=== PATIENT | female | born 1995 | race Caucasian/White ===

== ENCOUNTER 2022-03-24 14:01 | Outpatient (CLI) | payer MEDICAID, SELFPAY ==
[2022-03-24 21:58] LABS: Albumin* 4.3 g/dL (3.3-5.0); Chloride* 107 mmol/L (96-114)
[2022-03-24 21:59] LABS: Potassium* 4.5 mmol/L (3.6-5.1); Sodium* 142 mmol/L (135-149)
[2022-03-24 22:01] LABS: Aspartate Amino Transferase* 33 U/L (12-35); Bilirubin Total* 0.5 mg/dL (0.1-1.5); Carbon Dioxide* 28 mmol/L (20-32); Creatinine* 0.6 mg/dL (0.5-1.5); Estimated Glomerular Filt Rate 125 ml/min; Total Protein* 7.2 g/dL (6.0-8.3)
[2022-03-24 22:02] LABS: Alanine Aminotransferase* 36 U/L (4-35); Alkaline Phosphatase* 92 U/L (40-150); Blood Urea Nitrogen* 7 mg/dL (5-24); Calcium* 9.3 mg/dL (8.4-10.6); Glucose* 96 mg/dL (60-115)
== END 2022-03-24 14:02 | disposition home or self-care (01) ==
LOC: LKVREF 14:03
PROVIDERS: PCP Family Medicine; Visit Provider Family Medicine
DX: R10.11 Right upper quadrant pain (principal)
CPT/HCPCS: 80053

== ENCOUNTER 2024-02-15 18:14 | Emergency (ER) | payer OTHER, SELFPAY ==
[2024-02-15 18:17] VITALS: BP 130/84; PULSE 116; RESP 18; TEMP 36.9; O2SAT 95; BMI 42.1
--- NOTE | 2024-02-15 18:19 | ED.GENADULT ---
HPI - General Adult General Date Seen: 02/15/24 Chief complaint: Back Injury/Pain Stated complaint: back pain shhoting down rt leg Time Seen by Provider: 02/15/24 18:18 History of Present Illness HPI narrative: 28-year-old female with a past medical history of bipolar disorder, GERD, anxiety/depression, history of otitis media and eustachian tube dysfunction, (but no history of diabetes, cancer, immunosuppression) presenting to the ER today for right-sided low back pain radiating to her right hip and right proximal/lateral thigh. She has a history of low back problems and had a previous L5-S1 disc herniation affecting the nerve roots to going down her left leg. She actually had a diskectomy and lumbar interbody fusion of L5-S1 done about [address] Estrella, through the spine clinic from [place], and the surgery was done at [facility]. Since then she has been doing very well for the past 3 years. She has not had any recent back injury. No fall. No trauma. She has been feeling normally lately. She does not normally take any pain killers or muscle relaxers. She was sitting on her couch a couple of hours prior to arrival when she had onset of pain in her low back. She is not sure if she started well she was on the couch when she got up to go to the bathroom. The pain is located in her low back predominantly in the right lumbar paraspinous muscles and right pelvis and radiates to her right hip and a little bit to the right lateral but proximal thigh is not radiating further down that. No other numbness or weakness in her right leg. Bowel function has been normal. Bladder function normal. No fever chills. No dysuria, urgency, frequency. She is not having any flank pain. No anterior abdominal pain. She took ibuprofen 6 0 mg p.o. but did not get any relief from that. She is having so much spasming that she has trouble getting up and walking. She says she remembers the muscle spasms from years ago she had her previous back problems. She cannot remember 1 muscle relaxers were effective for her previously Related Data Home Medications ?Medication ?Instructions ?Recorded ?Confirmed aripiprazole 5 mg tablet 5 mg PO QDAY 11/26/21 02/15/24 omeprazole 20 mg capsule,delayed 20 mg PO QDAY 11/26/21 02/15/24 release etonogestrel 0.12 mg-ethinyl vag ring vaginal 02/15/24 estradiol 0.015 mg/24 hr vaginal ring (EnilloRing) phentermine 37.5 mg tablet 37.5 mg PO DAILY 02/15/24 02/15/24 propranolol 60 mg capsule,24 60 mg PO DAILY 02/15/24 02/15/24 hr,extended release Previous Rx's ?Medication ?Instructions ?Recorded albuterol sulfate 90 mcg/actuation 2 puff inhalation Q4-6H PRN 11/14/23 aerosol inhaler shortness of breath or wheezing #8.5 grams Allergies Allergy/AdvReac Type Severity Reaction Status Date / Time fluoxetine Allergy Intermediate Verified 03/24/22 13:28 [facility] Medical History Citizen Of [place] ethnicity Encounter for pre-operative examination ?Z01.818 - Encounter for other preprocedural examination (ICD-10) Surgical History History of third molar tooth extraction ?K08.409 - Partial loss of teeth, unspecified cause, unspecified class (ICD-10) Family History Other Breast cancer Heart disease Kidney stones Lung cancer Thyroid disease Social History Narrative: Electronic cigarette use Former smoker Smoking Status: Never smoker Second hand tobacco smoke exposure: No How often do you have a drink containing alcohol: never AUDIT-C Alcohol total score: 0 Non-prescribed substance use: denies use service: No Exam Narrative: Exam Narrative: Constitutional: Appears well-developed and well-nourished. Alert. Conversant. Uncomfortable and is laying supine on her bed. She is not able to sit up for exam because it causes too much pain in her low back.. HENT: Head: Atraumatic. Nose: Nose normal. Mouth/Throat: Oral mucosa is clear and moist. no trismus. Eyes: Conjunctivae normal. EOM normal. Pupils equal, round, and reactive to light. No scleral icterus. Neck: Normal range of motion. Neck supple. No tracheal deviation present. Cardiovascular: Normal rate, regular rhythm. No gallop. No friction rub. No murmur heard. Symmetric radial artery pulses Pulmonary/Chest: Effort normal. No stridor. No respiratory distress. No wheezes. No rales. No rhonchi . No CVA or rib tenderness. Abdominal: Soft. No distension. No mass. No tenderness. No rebound. No guarding. Musculoskeletal: RUE: Normal range of motion. No tenderness. No deformity LUE: Normal range of motion. No tenderness. No deformity RLE: Range of motion in her hip and knee are limited by her back pain. No edema. No tenderness. No deformity LLE: Range of motion in her hip and knee are limited by her back pain. No edema. No tenderness. No deformity She is able to roll partly onto her side for back exam. She has healed incision. There is no redness. No warmth. No bruising. No ecchymosis. No midline point tenderness or step-off. Pelvis is stable. Neurological: Alert and oriented to person, place, and time. Normal strength. CN II-VII intact. No sensory deficit. GCS eye subscore is 4. GCS verbal subscore is 5. GCS motor subscore is 6. Normal coordination Sensory: Normal light touch sensation bilaterally on the anteromedial thigh (L3), medial malleolus (L4), dorsal first web space (L5), lateral malleolus (S1). Strength: 5/5 strength hip flexors (L3) on the right and left 5/5 strength in the quadriceps (L4) on the right and left 5/5 strength in the tibialis anterior 5/5 strength in the EHL (L5) on the right and left 5/5 strength in the gastrocnemius (S1) on the right and left 5/5 strength in the hamstring on the right and left DTRs: symmetric in the patella (1+/4) and in the achilles (2/4) tendons. Negative straight leg raise bilaterally. Lifting either leg triggers a spasm of pain in her low back but the pain does not radiate down her legs. Skin: Skin is warm and dry. No rash noted. No pallor. Normal capillary refill. Psychiatric: Normal mood. Normal affect. Const: Vital Signs, click to edit/add: Vital Signs - 24 hr 02/15/24 18:17 Temperature 98.5 F Pulse Rate [Pulse Oximeter] 116 H Respiratory Rate 18 Blood Pressure [Ri ght Upper Arm] 130/84 Pulse Oximetry 95 Oxygen Delivery Me thod Room Air Course Course ED Course: [id number]. Sitting up in bed checking her phone. Says she still having some pain and spasm but overall is much better and she feels like her symptoms are tolerable. We discussed options. She feels comfortable discharging home at this point without further meds given here in the ER. Discussed [facility] prescriptions and opiate precautions. Vital Signs Vital signs: Initial Vital Signs Temperature 98.5 F 02/15/24 18:17 Temperature Source Temporal Artery Scan 02/15/24 18:17 Pulse Rate 116 H 02/15/24 18:17 Respiratory Rate 18 02/15/24 18:17 Blood Pressure 130/84 02/15/24 18:17 Blood Pressure Mean 99 02/15/24 18:17 Blood Pressure Position Sitting 02/15/24 18:17 Pulse Oximetry 95 02/15/24 18:17 Oxygen Delivery Method Room Air 02/15/24 18:17 Vital Signs Temperature 98.5 F 02/15/24 18:17 Pulse Rate 116 H 02/15/24 18:17 Respiratory Rate 18 02/15/24 18:17 Blood Pressure 130/84 02/15/24 18:17 Pulse Oximetry 95 02/15/24 18:17 Oxygen Delivery Method Room Air 02/15/24 18:17 Temperature 98.5 F 02/15/24 18:17 Pulse Rate 116 H 02/15/24 18:17 Respiratory Rate 18 02/15/24 18:17 Blood Pressure 130/84 02/15/24 18:17 Pulse Oximetry 95 02/15/24 18:17 Oxygen Delivery Method Room Air 02/15/24 18:17 Medications Administered Medications: Discontinued Medications Generic Name Dose Route Start Last Admin Trade Name Freq PRN Reason Stop Dose Admin Cyclobenzaprine HCl 10 mg 02/15/24 18:44 02/15/24 18:51 Cyclobenzaprine Hcl 10 Mg Tablet PO 02/15/24 18:45 10 mg ONCE ONE Administration Ondansetron HCl 4 mg 02/15/24 18:44 02/15/24 18:50 Ondansetron Odt 4 Mg Tab PO 02/15/24 18:45 4 mg ONCE ONE Administration Oxycodone/Acetaminophen 1 tab 02/15/24 18:44 02/15/24 18:50 Oxycodone/Apap 5-325 Tablet PO 02/15/24 18:45 1 tab ONCE ONE Administration Medical Decision Making MDM Narrative Medical decision making narrative: This patient presented with back pain, affecting her lower lumbar spine predominantly on the right but also a little bit on the left which radiates to the right hip and right lateral proximal thigh but not further down the leg. Broad differential considered. The patient did not sustain any trauma, therefore x-rays are not necessary due to the low likelihood of fracture or subluxation. No red flag symptoms to suggest CT and/or MRI is indicated at this point. The patient has not had a fever, saddle/perineal anesthesia, bilateral foot numbness, or bowel or bladder dysfunction. There is no clinical evidence of cauda equina syndrome, discitis, spinal/epidural space hematoma or epidural abscess. The neurological exam is normal and the patient's symptoms seem consistent with a musculoskeletal issues and significant muscle spasm. Pain has improved with interventions in the emergency department. The patient will be discharged with pain medications to use as directed. Ice or heat to the back and stretching exercises. No heavy lifting, bending or twisting. Return if increasing pain, numbness, weakness, or bowel or bladder dysfunction. The patient was advised to schedule follow-up with their primary doctor within 2-3 days to re-assess symptoms. Return precautions reviewed and questions answered. [facility] prescriptions for Percocet 1-2 every 6 hours as needed. Twelve tablets [facility] prescription for Flexeril 1-every 8 hours as needed for spasm-15 tablets. Discharge Plan Discharge Clinical Impression: Low back pain Patient Disposition: Home, Self-Care Condition: Stable Instructions: Acute Low Back Pain (ED) Additional Instructions: As we discussed, please return to the ER right away if you have worsening or severe low back pain, numbness or weakness going down her leg, dysfunction of your bladder or your bowels, fever, or any other concerns. For this weekend use [id number] medications such as Tylenol or ibuprofen 1st for pain relief. Use the prescription muscle relaxers and prescription pain killer (Percocet) if needed for pain uncontrolled by other medications. Use caution with Percocet because it can cause dizziness, drowsiness, constipation, and can be addictive. Do not drive a car or operate machinery for 6 hours after taking muscle relaxers or pain killers. Please follow-up with your regular doctor for recheck within 3-5 days if not completely improved. Remember, you can come back to the ER any time if you need help or if you are getting worse. Prescriptions: No Action aripiprazole 5 mg tablet 5 mg PO QDAY Patient Comments: TAKE ONE TABLET BY MOUTH EVERY DAY omeprazole 20 mg capsule,delayed release(DR/EC) 20 mg PO QDAY albuterol sulfate 90 mcg/actuation HFA aerosol inhaler 2 puff inhalation Q4-6H PRN (Reason: shortness of breath or wheezing) Qty: 8.5 0RF propranolol 60 mg capsule,extended release 24 hr 60 mg PO DAILY phentermine 37.5 mg tablet 37.5 mg PO DAILY etonogestrel-ethinyl estradiol [EnilloRing] 0.12-0.015 mg/24 hr ring vaginal Follow Up/Referrals: Efraín Jackson MD [Primary Care Provider] - Stand Alone Forms: [employer] Info Instructions
[2024-02-15] MEDS: ONDANSETRON ODT 4 MG TAB PO (18:50)
[2024-02-15] MEDS: OxyCODONE/APAP 5-325 TABLET 1 TAB PO (18:50)
[2024-02-15] MEDS: CYCLOBENZAPRINE HCL 10 MG TABLET PO (18:51)
[2024-02-15 19:53] VITALS: BP 138/80; PULSE 84; RESP 16; TEMP 36.7; O2SAT 97
== END 2024-02-15 19:55 | disposition home or self-care (01) ==
PROVIDERS: Emergency Provider Emergency Medicine; PCP Family Medicine
DX: M54.50 Low back pain, unspecified (principal)
CPT/HCPCS: 99283; 99284; A9270